=== PATIENT | female | born 2000 | race African-American/Black ===

== ENCOUNTER 2022-11-20 11:52 | Emergency (ER) | payer OTHER ==
[~2022-11-20] VITALS: Ht 172.7 cm; Wt 88.5 kg
== END 2022-11-20 14:09 | disposition home or self-care (01) ==
LOC: ER 11:56
DX: M79.605 Pain in left leg (principal); I80.02 Phlebitis and thrombophlebitis of superficial vessels of left lower extremity
CPT/HCPCS: 93971; 99283

== ENCOUNTER 2022-12-07 11:15 | Emergency (ER) | payer OTHER ==
[~2022-12-07] VITALS: Ht 172.7 cm; Wt 88.5 kg
[2022-12-07] MEDS ORDERED: IBUPROFEN 600 MG TAB PO ONE (12:00)
[2022-12-07 15:46] VITALS: BP 106/71
== END 2022-12-07 15:46 | disposition home or self-care (01) ==
LOC: ER 11:25
DX: J02.8 Acute pharyngitis due to other specified organisms (principal); M79.661 Pain in right lower leg
CPT/HCPCS: 83518; 87070; 93971; 99283